=== PATIENT | female | born 2000 | race Caucasian/White ===

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

== ENCOUNTER 2019-04-01 11:23 | Emergency (ER) | payer BC ==
--- OUTSIDE RECORDS SUMMARY | 2019-04-01 11:34 | XMS REPORT | Continuity of Care Document ---
:2000 Author Organization [facility] Address [address] [place] [address] Phone Care Team Providers Name Role Phone Dora Anaya NP Unavailable Unavailable Allergies, Adverse Reactions, Alerts Substance Reaction Status amoxicillin Hives/Skin Rash Active Medications Medication Instructions Dosage Effective Dates Status Comments (start - stop) Nexplanon 68 mg Insert in clinic - Active subdermal implant ZIPRASIDONE HCL Not Available - Active (unknown strength) Problems Condition Effective Dates (start - Clinical Status Comments stop) Pelvic and perineal pain Human immunodeficiency virus [HIV] - counseling Encntr screen for infections w sexl mode of transmiss Enctr srvlnc implantable subdermal contraceptive Enctr for init prescription of implntbl subdermal contracep Encounter for oth general cnsl and advice on contraception Encntr screen for infections w sexl mode of transmiss Encounter for surveillance of contraceptive pills Encounter for surveillance of contraceptive pills Encounter for initial prescription of contraceptive pills Encntr screen for infections w sexl mode of transmiss Procedures Procedure Date No information Results Test Name Date and Time Measure Units Reference Range Abnormal Flag Status Comments No information Advance Directives Directive Yes / No Effective Date File Name No information Encounters Encounter Practice Location Reason(s) Diagnoses Date Provider Providers Description For Visit Copied on Encounter [facility] [address], [place] [facility], [address] tel:[phone] St, [place], [address] [place], [id number], [place] tel:[phone] [facility] Pelvic and Sep-2 Parete Referring [facility] [place] perineal pain 8-201 Dora. [address] Provider: [facility] [address], [place], [facility], [facility], [address]. [address] tel:[phone], [facility], [address] [place], [address]. [id number], tel:[phone] tel:[phone] [facility] Human Mar-1 Parete Referring [facility] [place] immunodeficiency 4-201 Dora. [address] Provider: [facility] virus [HIV] [address], [place]ora [place] counselingEncntr [place], [facility], [facility], [address] [place] [address]. [address] infections w tel:+[phone], [facility], [place] [address] [place], [place], [place], [address]. [id number], tel:[phone] tel:[phone] [facility] Enctr srvlnc Jan-0 [place] Referring [facility] [place] implantable 5-201 Dolores. Provider: [facility] subdermal 7 [address], [place], [place] , [facility], [address] [place], [address], [address], , [place], tel:+[phone] [place], [address] [place], [address]. [id number], tel:[phone] tel:[phone] [facility] Enctr for init August-2 Guggino [facility] [place] prescription of 3-201 Dolores. [facility] implntbl 7 [address], [place], [facility], [address] [place], [address], [address], [place], tel:[phone] [place], [id number], [place] tel:[phone] [facility] Encounter for August-1 Guggino [facility] [place] oth general cnsl Dolores. [address] and advice on 7 [address], [place], [place], [address] [place], [address], [address] infections w [address]. [address], [place], sexl mode of tel:[phone] [place], trans[place] [id number], [place] tel:[phone] [facility] Encounter for Oct-0 White Luna. [facility] [place] surveillance of [address], [place], [place], [address], [place], [address], [place], [place], [id number], [place] tel:[phone] [facility] Encounter for August-0 Parete [facility] [place] surveillance of Dora. [address], [place] pills [place], [place], [place], [address]. [address] tel:[phone] , [place], [address] [place], [id number], [place] tel:[phone] [facility] Encounter for Jun-2 Teddyidis [facility] [place] initial Yecenia. [address] prescription of [address], [place] contraceptive [place], [place], [place], 620 pillsEncntr [address]. [address] screen for tel:[phone] St, [place], [place] [address] [place], sexl mode of [id number], transmiss [place] tel:[phone] Family History Family Member Diagnosis Age At Onset 1st degree relative No hx of venous thromboembolism 1st degree relative No hx of coronary heart disease (female <65, male <55) Mother No history of Stroke Father No history of Stroke Father No history of Myocardial infarction Mother Cancer, ovarian 35 Mother No history of Myocardial infarction Immunizations Vaccine Date Status Comments No information Payers Payer name Insurance type Covered alliance party ID Authorization(s) Jose Antonio Peterson [facility] CI [id number] Social History Type Description Quantity Date Captured Comments Alcohol Use Details Unknown Caffeine Use Details Unknown Tobacco Use Status Unknown Smoking Status Never smoker Sex Female Vital Signs Date / Height Weight BMI Pulse Blood Temperature Respiratory Body Head BMI Pulse Inhaled Time: Rate Pressure Rate Surface Circumference percentile Ox Ox Area No information Chief Complaint And Reason For Visit No information Reason For Referral Reason For Referral No information Plan Of Treatment Date Type Action Status Referral Ordered: ordered Referrals: E M Assembler. Evaluate and treat History Of Present Illness Encounter Date Complaint History Of Present Illness No information Functional Status Date Functional Assessment No information Medications Administered Medication Instructions Dosage Effective Dates (start - stop) Status Comments No information Instructions Date Instruction Additional Information No information Assessments Type Assessment Date No information Goals Health Concern Goal Type Priority Status Date No information Medical Equipment Description Device [place] Device Identifier Effective Dates (start - stop ) Status No information Mental Status Date Cognitive Assessment No information Health Concerns Observation Date No information Concern Status Date No information
--- OUTSIDE RECORDS SUMMARY | 2019-04-01 11:34 | XMS REPORT | Continuity of Care Document ---
:1998 Author Organization [facility] Address [address] [place] [address] Phone Care Team Providers Name Role Phone Cathy Alva Unavailable Unavailable Allergies, Adverse Reactions, Alerts Substance [...] For Visit Copied on Encounter [facility] Angus Morgan. [facility] [place] [address] [facility] [address], [place], [facility], [address]. [facility], [facility] tel:[phone], [place], [place], [id number], [place] tel:[phone] [facility] Pelvic and Sep-2 Parete Referring [facility] [place] perineal pain 8-201 Dora. [address] Provider: [facility] [address], Dora Finger [place], [place], [facility], [facility], [address]. [address] tel:[phone], [facility], [address] [place], [address]. [id number], tel:[phone] tel:[phone] [facility] Human Mar-1 Parete Referring [facility] [place] immunodeficiency 4-201 Dora. [address] Provider: [facility] virus [HIV] [address], [place] Finger counselingEncntr [place], [place], [facility], [facility], 620 [place] [address]. [address] infections w tel:[phone], [facility], [place] [address] [place], [place], [place], [address]. [id number], tel:[phone] tel:[phone] [facility] Enctr srvlnc Jan-0 Guggino Referring [facility] [place] implantable 5-201 Dolores. Provider: [facility] subdermal 7 [address], [place], [place] [employer], [address] [place], [address], [address], [facility], tel:+[phone] [place], [address] [place], [address]. [id number], tel:[phone] tel:[phone] [facility] Enctr for init August-2 Guggino [facility] [place] prescription of 3-201 Dolores. [facility] implntbl 7 [address], [place], [facility], [address] [place], [address], [address], [place], tel:[phone] [place], [id number], [place] tel:[phone] [facility] Encounter for August-1 Guggino [facility] [place] ot general cnsl 7-201 Dolores. [facility] and advice on 7 [address], [place], [place], [address] [place], [address], [address] infections w [place]. [address], [place], sexl mode of tel:[phone] [place], [place] [id number], [place] tel:[phone] [facility] Encounter for Oct-0 White Luna. [facility] [place] surveillance of [address], [place], [place], [address], [place], [address], [place], [place], [id number], [place] tel:[phone] [facility] Encounter for August-0 Parete [facility] [place] surveillance of Dora. [address] contrace[address], F[place] pills [place], [place], [place], [address]. [address] tel:[phone] , [place], [address] [place], [id number], [place] tel:[phone] [facility] Encounter for Jun-2 Teddyidis [facility] [place] initial Yecenia. [address] prescription of [address], Finger contraceptive [place], [place], [place], [address] pillsEncntr [address]. [address] screen for tel:[phone] St, [place], [place] [address] [place], sexl mode of [id number], transmiss [place] tel:[phone] Family History Family Member Diagnosis Age At [...] information Payers Payer name Insurance type Covered democrat ID Authorization(s) Jose Antonio Peterson [facility] CI [id number] Social History Type Description Quantity Date Captured [...] Type Action Status Referral Ordered: ordered Referrals: Windows Desktop Engineer. Evaluate and treat History Of Present Illness [...] Date No information Medical Equipment Description Device [place] Device Identifier Effective Dates (start - stop ) Status No information Mental Status Date Cognitive Assessment No information Health Concerns Observation Date No information Concern Status Date No information
--- OUTSIDE RECORDS SUMMARY | 2019-04-01 11:34 | XMS REPORT | Continuity of Care Document ---
:1998 Author Organization [facility] Address [address] [place] [address] Phone Care Team Providers Name Role Phone [...] For Visit Copied on Encounter [facility] Jaclyn [facility] -Octia. [address], [place] [facility], [address] [address]. [address] tel:[phone] St, [place], [address] [place], [id number], [place] tel:[phone] [facility] Pelvic and Sep-2 Parete Referring [facility] [place] perineal pain 8-201 Dora. [address] Provider: [facility] [address], [place], [place], [facility], [facility], [address]. [address] tel:+[phone], [facility], [address] [place], [place], [address]. [id number], tel:[phone] [place] [phone] tel:[phone] [facility] Human Mar-1 Parete Referring [facility] [place] immunodeficiency 4-201 Dora. [address] Provider: [facility] virus [HIV] [address], [place] counselingEncntr [place], [place], [facility], [facility], [address] [place] [address]. [address] infections w tel:+[phone], [facility], [place] [address] [place], [place], [place], [address]. [id number], tel:[phone] [place] [phone] tel:[phone] [facility] Enctr srvlnc Jan-0 Guggino Referring [facility] [place] implantable 5-201 Dolores. Provider: [facility] subdermal 7 [address] Dolores Finger contraceptive , [place], Gugg[place] [facility], [address] [place], [address], [address], , [place], tel:+[phone] [place], [address] [place], [address]. [id number], tel:[phone] [place] [phone] tel:[phone] [facility] Enctr for init August-2 Guggino [facility] [place] prescription of 3-201 Dolores. [facility] implntbl 7 [address], [place], [facility], [address] [place], [address], [address], [place], tel:[phone] [place], [id number], [place] tel:[phone] [facility] Encounter for August-1 [place] [facility] 7-201 Dolores. [facility] and advice on 7 [address], [place], [place], [address] [place], [address], [address] infections w [place]. [address], [place], sexl mode of tel:[phone] [place], trans[place] [id number], [place] tel:[phone] [facility] Encounter for Oct-0 White Luna. [facility] [place] surveillance of [address], [place], [place], [address], [place], [address], [place], [place], [id number], [place] tel:[phone] [facility] Encounter for August-0 Parete [facility] [place] surveillance of - Dora. [address], Finger pills [place], [place], [place], [address]. [address] tel:[phone] , [place], [address] [place], [id number], [place] tel:[phone] [facility] Encounter for Jun-2 Raphnedidis [facility] [place] initial Yecenia. [address] prescription of [address], Finger contraceptive [place], [place], [place], [address] pillsEncntr [address]. [address] screen for tel:[phone] St, [place], [place] [address] [place], sexl mode of [id number], transmiss [place] tel:[phone] Family History Family Member Diagnosis Age At [...] information Payers Payer name Insurance type Covered republican ID Authorization(s) Jose Antonio Peterson [facility] CI [id number] Social History Type Description Quantity Date Captured [...] Type Action Status Referral Ordered: ordered Referrals: Oil Separator. Evaluate and treat History Of Present Illness [...] Date No information Medical Equipment Description Device [place] Device Identifier Effective Dates (start - stop ) Status No information Mental Status Date Cognitive Assessment No information Health Concerns Observation Date No information Concern Status Date No information
--- OUTSIDE RECORDS SUMMARY | 2019-04-01 11:34 | XMS REPORT | Continuity of Care Document ---
:2000 External Reference #:[id number] Author Name Jose Enrique Miranda JR, DO (transmitted by agent of provider Claudia Hernandez ) Address [address] [facility] [place] [address] Care Team Providers Name Role Phone Dolores Goncalves MD Care Team Information Kiln Burner [phone] Problems Active Problems Provider Date Nonspecific abdominal symptom Lolis Allen MD Onset: 08/24/2011 Social History Type Date Description Comments Sex Unknown Tobacco Use Start: Unknown Never Smoked Cigarettes ETOH Use Occasionally consumes alcohol Recreational Drug Use Denies Drug Use Tobacco Use Start: Unknown Patient has never smoked Smoking Status Reviewed: 03/19/19 Patient has never smoked Exercise Type/Frequency Occasionally Seat Belt/Car Seat Always uses seat belt Allergies, Adverse Reactions, Alerts Active Allergies Reaction Severity Comments Date Amoxicillin 08/23/2011 Medications Active Medications SIG Qnty Indications Ordering Provider Date Nexplanon placed 09/13/16 Jose Enrique Miranda JR, DO 03/18/2019 68mg Implant Immunizations Description No Information Available Vital Signs Date Vital Result Comment 03/19/2019 1:47pm BP Systolic 118 mmHg BP Diastolic 60 mmHg Height 63.75 inches 5'3.75" Weight 142.00 lb BMI (Body Mass Index) 24.6 kg/m2 Last Menstrual Period [id number] 0 Parity 0 08/23/2011 2:49pm BP Systolic 90 mmHg BP Diastolic 64 mmHg Height 63.75 inches 5'3.75" Weight 104.00 lb BMI (Body Mass Index) 18.0 kg/m2 Last Menstrual Period [id number] 0 Parity 0 Results Description No Information Available Procedures Description No Information Available Medical Devices Description No Information Available Encounters Description No Information Available Assessments Description No Information Available Plan of Treatment No Information Available Functional Status Description No Information Available Mental Status Description No Information Available Referrals Description No Information Available
--- OUTSIDE RECORDS SUMMARY | 2019-04-01 11:34 | XMS REPORT | Continuity of Care Document ---
:2000 Author Organization [facility] Address [address] [place] [address] Phone Care Team Providers Name Role Phone [...] For Visit Copied on Encounter [facility] 8Octia. [address], Finger [facility], [address] [address]. [address] tel:[phone] St, [place], [address] [place], [id number], [place] tel:[phone] [facility] Pelvic and Sep-2 Parete Referring [facility] [place] perineal pain 8-201 Dora. [address] Provider: [facility] [address], [place], [place], [facility], [address]. [address] tel:[phone], [facility], [address] [place], [place], [address]. [id number], tel:[phone] tel:[phone] [facility] Human Mar-1 Parete Referring [facility] [place] immunodeficiency 4-201 Dora. [address] Provider: [facility] virus [HIV] [address], [place] counselingEncntr [place], [facility], [address] [place] [id number]. [address] infections w tel:[phone], [facility], [place] [address] [place], [place], [place], [address]. [id number], tel:[phone] tel:[phone] [facility] Enctr srvlnc Jan-0 Guggino Referring [facility] [place] implantable 5-201 Dolores. Provider: [facility] subdermal [address] [place] Finger contraceptive , [place], [place]ugg[place] [facility], [address] [place], [address], [address] [place], , [place], tel:[phone] [place], [address] [place], [address]. [id number], tel:[phone] tel:[phone] [facility] Enctr for init August-2 Guggino [facility] [place] prescription of 3-201 Dolores. [facility] implntbl 7 [address], [place], [facility], [address] [place], [address], [address] [place], [place], tel:[phone] [place], [id number], [place] tel:[phone] [facility] Encounter for August-1 [facility]ugg[facility] general [facility]nsl 7-201 Dol[place]. [facility] and advice on 7 [address], [place], [place], [address] [place], [address], [address] infections w [place]. [address], [place], sexl mode of tel:[phone] [place], trans[place] [id number], [place] tel:[phone] [facility] Encounter for Oct-0 White Luna. [facility] [place] surveillance of [address], [place], [place], [address], [place], [address] [place], [place], [place], [id number], [place] tel:[phone] [facility] Encounter for August-0 Parete [facility] [place] surveillance of Dora. [address] contrace[address], Finger pills [place], [place], [place], [address]. [address] tel:[phone] , [place], [address] [place], [id number], [place] tel:[phone] [facility] Encounter for Jun-2 Raphnedidis [facility] [place] initial Yecenia. [address] prescription of [address], [place] contraceptive [place], [place], [address] pillsEncntr [id number]. [address] screen for tel:[phone] St, [place], [place] [address] [place], sexl mode of [id number], transmiss [place] tel:[phone] Family History Family Member Diagnosis Age At [...] information Payers Payer name Insurance type Covered constitution party ID Authorization(s) Jose Antonio Peterson [facility] CI [id number] Social History Type Description Quantity Date Captured [...] Type Action Status Referral Ordered: ordered Referrals: Plastics Worker. Evaluate and treat History Of Present Illness [...] Date No information Medical Equipment Description Device Bidwell Device Identifier Effective Dates (start - stop ) Status No information Mental Status Date Cognitive Assessment No information Health Concerns Observation Date No information Concern Status Date No information
--- NOTE | 2019-04-01 13:27 | ED ---
Abdominal Pain/Female - HPI Summary HPI Summary: Patient is a 18-year-old female who presents with lower abdominal pain since last night/early this AM. States she has a history of ovarian cysts and is concerned it is a cyst. Hx of endometriosis, and feels similar. Multiple workups for same. States pain is in LLQ/suprapubic area. Radiates to back. These symptoms are typical for her when she has cysts, etc. However, mostly pt is requetsing nexplanon removal as she states double controls are causing her the discomfort. Associated with nausea and vomiting. States she urinates every 30 minutes, denies dysuria, burning, hematuria. Denies fever, chills. Denies diarrhea, constipation. Last bowel movement yesterday. LMP 3 weeks ago. History of endometriosis, ovarian cysts, and per the patient unexplained nausea/ vomiting. Patients main concern today is having her Nexplanon removed prior to traveling Apr 24, unable to get [facility] [employer] appointment. [facility] - History of Current Complaint Chief Complaint: EDAbdPain Stated Complaint: LOWER ABD PAIN Time Seen by Provider: 04/01/19 13:01 Hx Obtained From: Patient, Family/Spice Cleaner Hx Last Menstrual Period: now Pain Intensity: 8 Allergies/Adverse Reactions: Allergies Allergy/AdvReac Type Severity Reaction Status Date / Time amoxicillin Allergy Rash Verified 04/01/19 11:28 nickel Allergy Rash Verified 04/01/19 11:28 Penicillins Allergy Hives Verified 04/01/19 11:28 PMH/Surg Hx/FS Hx/Imm Hx Endocrine/Hematology History: Reports: Hx Anemia Denies: Hx Diabetes, Hx Thyroid Disease Cardiovascular History: Denies: Hx Hypertension Respiratory History: Reports: Hx Asthma Denies: Hx Chronic Obstructive Pulmonary Disease (COPD) GI History: Reports: Hx Ulcer History: Reports: Hx Kidney Stones Neurological History: Reports: Other Neuro Impairments/Disorders - vertigo Psychiatric History: Reports: Hx Anxiety, Hx Depression, Hx Community Mental Health Tx, Hx Suicide Attempt Denies: Hx Attention Deficit Hyperactivity Disorder, Hx Eating Disorder, Hx Panic Disorder, Hx Post Traumatic Stress Disorder, Hx Inpatient Treatment, Hx Schizophrenia, Hx Bipolar Disorder, Hx of Violent Episodes Against Others, Hx Substance Abuse - Surgical History Surgery Procedure, Year, and Place: COLONOSCOPY, ENDOSCOPY, UPPER GI,. left knee surgery. abdominal scope - to see if she had endometriosis (it was negative) - Immunization History Date of Tetanus Vaccine: up to date per mom Infectious Disease History: No Infectious Disease History: Denies: Hx Clostridium Difficile, Hx Hepatitis, Hx Human Immunodeficiency Virus (HIV), Hx of Known/Suspected MRSA, Hx Shingles, Hx Tuberculosis, Hx Known/ Suspected VRE, Hx Known/Suspected VRSA, History Other Infectious Disease, Traveled Outside the [place] in Last 30 Days - Family History Known Family History: Positive: None, Cardiac Disease - angina - uncle and stents - grandfather, Hypertension, Other - GERD. Kidney Stones, Anxiety to mother - Social History Alcohol Use: None Hx Substance Use: No Substance Use Type: Reports: None Hx Tobacco Use: No Smoking Status (MU): Never Smoked Tobacco Have You Smoked in the Last Year: No Review of Systems Constitutional: Negative Positive: Fatigue. Negative: Fever, Chills Eyes: Negative ENT: Negative Cardiovascular: Negative Negative: Palpitations, Chest Pain Respiratory: Negative Negative: Shortness Of Breath, Cough Positive: Abdominal Pain - LLQ, suprapubic, Vomiting, Nausea. Negative: Diarrhea Positive: frequency. Negative: burning, dysuria, hematuria Skin: Negative Neurological: Negative Psychological: Normal All Other Systems Reviewed And Are Negative: Yes Physical Exam Triage Information Reviewed: Yes Vital Signs On Initial Exam: Initial Vitals Temp Pulse Resp BP Pulse Ox 99.0 F 80 19 137/79 99 04/01/19 11:25 04/01/19 11:25 04/01/19 11:25 04/01/19 11:25 04/01/19 11:25 Vital Signs Reviewed: Yes Appearance: Positive: Well-Appearing, No Pain Distress, Well-Nourished Skin: Positive: Warm, Skin Color Reflects Adequate Perfusion, Dry Head/Face: Positive: Normal Head/Face Inspection Eyes: Positive: Normal, EOMI, Conjunctiva Clear ENT: Positive: Normal ENT inspection, Hearing grossly normal Neck: Positive: Supple Respiratory/Lung Sounds: Positive: Clear to Auscultation, Breath Sounds Present. Negative: Rales, Rhonchi, Wheezes Cardiovascular: Positive: Normal, RRR, S1, S2. Negative: Murmur, Rub Abdomen Description: Positive: No Organomegaly, Soft, CVA Tenderness (R), Other : - Suprapubic and LLQ TTP. Negative: CVA Tenderness (L), Distended, Guarding, Peritoneal Signs Bowel Sounds: Positive: Present Musculoskeletal: Positive: Normal Neurological: Positive: Normal, Sensory/Motor Intact, Alert, Oriented to Person Place, Time, CN Intact II-III Psychiatric: Positive: Normal, Anxious AVPU Assessment: Alert - Kiet Coma Scale Best Eye Response: 4 - Spontaneous Best Motor Response: 6 - Obeys Commands Best Verbal Response: 5 - Oriented Coma Scale Total: 15 Procedures - Sedation Patient Received Moderate/Deep Sedation with Procedure: No Diagnostics - Vital Signs Vital Signs Temp Pulse Resp BP Pulse Ox 04/01/19 11:25 99.0 F 80 19 137/79 99 - Laboratory Lab Statement: Any lab studies that have been ordered have been reviewed, and results considered in the medical decision making process. Abdominal Pain Fem Course/Dx - Course Course Of Treatment: On arrival into the ED, patient has multiple complaints regarding her abdominal pain and tenderness since last night. She is also endorsing some urinary symptoms. However, upon provider in room, patient states she is here for Nexplanon removal. She states [place] is leaving the country on [place]19 and needs to have it removed (states this has been causing her pain), before she leaves. It was explained to the patient that the Nexplanon removal should be provided by [facility] as outpatient in office. Provider was able to call [facility] office and secure an appointment for next Monday for Nexplanon removal. Patient is also given Toradol for her symptoms. Discussed obtaining ultrasound as well as lab work for her abdominal pain, however patient states this is her typical abdominal pain with her endometriosis and cysts and does not feel it would be of benefit. She will follow up with [facility]. Portal given, Toradol prescribed. Note given for work. - Diagnoses Differential Diagnosis: Positive: Ovarian Cyst, Urinary Tract Infection, Other - ovarian torsion, endometriosis, menorrhagia, metromenorrhea, menorrhea Provider Diagnoses: Abdominal pain Discharge ED - Sign-Out/Discharge Documenting (check all that apply): Patient Departure - Discharge Plan Condition: Stable Disposition: HOME Prescriptions: Ketorolac TAB * [Toradol TAB *] 10 mg PO Q6H #16 tab Patient Education Materials: Endometriosis (ED) Forms: *School Release Referrals: Kalani Orourke NP [Primary Care Provider] - Good Mayorga MD [Medical Doctor] - Additional Instructions: Apr 10 at 1:30pm for nexplanon removal. Todaol 10mg four times daily x 4 days DO NOT TAKE OTHER NSAIDS WHILE TAKING THIS MEDICATION Tylenol 650mg three times daily on opposite schedule - Billing Disposition and Condition Condition: STABLE Disposition: Home
[2019-04-01] MEDS ORDERED: Ketorolac *IM* INJ* 60 MG/2 ML VIAL IM ONE (14:04)
[2019-04-01 14:30] VITALS: BP 136/70
== END 2019-04-01 14:30 | disposition home or self-care (01) ==
LOC: ED 11:23
DX: R10.9 Unspecified abdominal pain (principal); D64.9 Anemia, unspecified; J45.909 Unspecified asthma, uncomplicated; F41.9 Anxiety disorder, unspecified; F32.9 Major depressive disorder, single episode, unspecified; Z88.0 Allergy status to penicillin; Z87.442 Personal history of urinary calculi
CPT/HCPCS: 96372; 99282; J1885

== ENCOUNTER 2020-05-10 14:45 | Inpatient (IN) ==
[2020-05-10 15:22] LABS: Urine Appearance Cloudy; Urine Bilirubin Negative (Negative); Urine Blood 2+ (Negative); Urine Color Yellow; Urine Glucose Negative (Negative); Urine Ketones Negative (Negative); Urine Nitrite Negative (Negative); Urine Protein Negative (Negative); Urine Specific Gravity 1.014 (1.010-1.030); Urine Urobilinogen Negative (Negative)
[2020-05-10 15:24] LABS: Urine Bacteria Absent (Absent); Urine Red Blood Cell Trace(0-2/hpf) (Absent); Urine Squamous Epithelial Cell Present (Absent); Urine White Blood Cell Trace(0-5/hpf) (Absent)
[2020-05-10 15:40] LABS: Urine Benzodiazepine Screen None Detected (None Detect); Urine Cannabinoids Screen None Detected (None Detect); Urine Opiates Screen None Detected (None Detect)
[2020-05-10 15:50] LABS: ABS Eosinophils 0.1 10^3/ul (0-0.6); ABS Lymphocytes 1.7 10^3/ul (1.0-4.8); ABS Monocytes 0.5 10^3/ul (0-0.8); ABS Neutrophils 4.7 10^3/ul (1.5-7.7); Hematocrit 42 % (35-47); Hemoglobin 14.3 g/dL (12.0-16.0); Lymphocyte % 23.8 %; Mean Corpuscular HGB Conc 34 g/dL (31-36); Mean Corpuscular Hemoglobin 32 pg (27-31); Mean Corpuscular Volume 93 fL (80-97); Mean Platelet Volume 8.2 fL (7.4-10.4); Platelet Count 211 10^3/uL (150-450); Red Cell Distribution Width 13 % (10-15)
[2020-05-10 16:05] LABS: Albumin 4.5 g/dL (3.2-5.2); Anion Gap 7 mmol/L (2-11); CO2 Carbon Dioxide 25 mmol/L (22-32); Calcium 8.9 mg/dL (8.6-10.3); Chloride 107 mmol/L (101-111); Sodium 139 mmol/L (135-145)
[2020-05-10 16:10] LABS: Acetaminophen < 15 mcg/mL; Alcohol, S 11 mg/dL (<10); Salicylate < 2.50 mg/dL (<30)
[2020-05-10 16:11] LABS: ALT 18 U/L (7-52); AST 15 U/L (13-39); Albumin/Globulin Ratio 1.7 (1-3); Alkaline Phosphatase 80 U/L (34-104); BUN/Creatinine Ratio 10.6 (8-20); Blood Urea Nitrogen 9 mg/dL (6-24); EGFR African American 102.2 (>60); EGFR Non-African American 84.4 (>60); Globulin 2.6 g/dL (2-4); Glucose 95 mg/dL (70-100); Total Protein 7.1 g/dL (6.4-8.9)
[2020-05-10 16:26] LABS: HCG Pregnancy < 0.60 mIU/mL
[2020-05-10 16:34] LABS: TSH Ultra Thyroid Stim Horm 1.05 mcIU/mL (0.34-5.60)
[2020-05-10 16:50] LABS: HIV 4th Generation Nonreactive (Nonreactive)
[2020-05-10] MEDS ORDERED: Al Hydrox/Mg Hydrox/Simet LIQ 30 ML UDC PO PRN (19:32)
[2020-05-10] MEDS ORDERED: CMCS: Ketorolac 10 mg TAB (NF) PO PRN (20:07)
[2020-05-11 08:15] LABS: HDL Cholesterol 53.6 mg/dL
[2020-05-11] MEDS: Vitamin THERAPEUTIC TAB PO SCH (10:02)
[2020-05-12] MEDS ORDERED: Influenza VAC *QUAD* 2020-21* 0.5 ML SYRINGE IM ONE (09:00)
[2020-05-12] MEDS: Vitamin THERAPEUTIC TAB PO SCH (09:13)
[2020-05-12] MEDS: CMCS: Meloxicam 7.5 mg TAB (NF) PO SCH (11:12)
[2020-05-12] MEDS: Amphetamine MIXED SALT 10mgTAB PO SCH (14:34)
[2020-05-13 08:13] VITALS: BP 119/69
[2020-05-13] MEDS: Amphetamine MIXED SALT 10mgTAB PO SCH (08:37)
[2020-05-13] MEDS: Vitamin THERAPEUTIC TAB PO SCH (08:38)
[2020-05-13] MEDS: CMCS: Meloxicam 7.5 mg TAB (NF) PO SCH (08:38)
== END 2020-05-13 14:00 | disposition home or self-care (01) | DRG 753 ==
LOC: ED 14:45 → BSU 16:30 → ED 17:20
PROVIDERS: ADMIT Psychiatry & Neurology Addiction Psychiatry; ATTEND Psychiatry & Neurology Psychiatry

== ENCOUNTER 2021-04-11 18:06 | Inpatient (IN) ==
[2021-04-11 18:46] LABS: Urine Appearance Cloudy; Urine Bilirubin Negative (Negative); Urine Blood Negative (Negative); Urine Color Yellow; Urine Glucose Negative (Negative); Urine Ketones Negative (Negative); Urine Nitrite Negative (Negative); Urine Protein Negative (Negative); Urine Specific Gravity 1.016 (1.002-1.030); Urine Urobilinogen Negative (Negative)
[2021-04-11 19:10] LABS: ABS Eosinophils 0.1 10^3/ul (0-0.6); ABS Lymphocytes 1.6 10^3/ul (1.0-4.8); ABS Monocytes 0.5 10^3/ul (0-0.8); ABS Neutrophils 4.2 10^3/ul (1.5-7.7); Eosinophil % 1.1 %; Hematocrit 41 % (35-47); Hemoglobin 14.1 g/dL (12.0-16.0); Lymphocyte % 25.4 %; Mean Corpuscular HGB Conc 34 g/dL (31-36); Mean Corpuscular Hemoglobin 32 pg (27-31); Mean Corpuscular Volume 93 fL (80-97); Mean Platelet Volume 8.1 fL (7.4-10.4); Platelet Count 204 10^3/uL (150-450); Red Blood Count 4.44 10^6 /uL (3.70-4.87); Red Cell Distribution Width 12 % (10-15); White Blood Count 6.4 10^3/uL (3.5-10.8)
[2021-04-11 19:13] LABS: Urine Benzodiazepine Screen None Detected (None Detect); Urine Cannabinoids Screen None Detected (None Detect); Urine Opiates Screen None Detected (None Detect)
[2021-04-11 19:27] LABS: ALT 15 U/L (7-52); Albumin 4.4 g/dL (3.2-5.2); Albumin/Globulin Ratio 1.8 (1-3); Alkaline Phosphatase 63 U/L (35-149); Blood Urea Nitrogen 14 mg/dL (6-24); CO2 Carbon Dioxide 28 mmol/L (22-32); Calcium 9.1 mg/dL (8.6-10.3); Chloride 105 mmol/L (101-111); Globulin 2.5 g/dL (2-4); Glucose 110 mg/dL (70-100); Sodium 138 mmol/L (135-145); Total Protein 6.9 g/dL (6.4-8.9); eGFR CKD-EPI 73.7 (>60)
[2021-04-11 19:33] LABS: HCG Pregnancy < 0.60 mIU/mL
[2021-04-11 19:50] LABS: Acetaminophen < 15 mcg/mL; Alcohol, S < 13 mg/dL (<13); Salicylate < 2.50 mg/dL (<30)
[2021-04-11 20:16] LABS: AST 14 U/L (13-39); Anion Gap 5 mmol/L (2-11); Potassium 3.9 mmol/L (3.5-5.0)
[2021-04-12] MEDS ORDERED: Nicotine GUM 2MG FRUIT FLAVOR PO PRN (01:00)
[2021-04-12] MEDS: Vitamin THERAPEUTIC TAB PO SCH (11:01)
[2021-04-12 14:58] LABS: TSH Ultra Thyroid Stim Horm 1.78 mcIU/mL (0.34-5.60)
[2021-04-12 15:09] LABS: Vitamin B12 364 pg/mL (180-914)
[2021-04-12 15:13] LABS: Vitamin D Total 25(OH) 29.5 ng/mL (20-50)
[2021-04-12] MEDS: Al Hydrox/Mg Hydrox/Simet LIQ 30 ML UDC PO PRN (19:55)
[2021-04-13 07:37] LABS: HDL Cholesterol 55.1 mg/dL
[2021-04-13] MEDS: Amphetamine MIXED SALT 10mgTAB PO SCH (08:47)
[2021-04-13] MEDS: Vitamin THERAPEUTIC TAB PO SCH (08:47)
[2021-04-13] MEDS ORDERED: Amphetamine MIXED SALT 10mgTAB PO SCH (09:00)
[2021-04-13] MEDS: Al Hydrox/Mg Hydrox/Simet LIQ 30 ML UDC PO PRN ×3 (12:26→21:21)
[2021-04-13] MEDS ORDERED: Al Hydrox/Mg Hydrox/Simet LIQ 30 ML UDC PO ONE (15:49)
[2021-04-14] MEDS: Vitamin THERAPEUTIC TAB PO SCH (08:29)
[2021-04-14] MEDS: Amphetamine MIXED SALT 10mgTAB PO SCH (08:29)
[2021-04-14 08:44] VITALS: BP 118/66
== END 2021-04-14 13:00 | disposition home or self-care (01) | DRG 753 ==
LOC: ED 18:06 → BSU 23:18
PROVIDERS: ADMIT Psychiatry & Neurology Psychiatry; ATTEND Psychiatry & Neurology Psychiatry